=== PATIENT | male | born 1955 | race Caucasian/White ===

== ENCOUNTER 2021-12-04 08:31 | Outpatient (CLI) | payer MEDICARE, BC, SELFPAY ==
[2021-12-04 10:33] LABS: Albumin* 4.3 g/dL (3.3-5.0); Chloride* 106 mmol/L (96-114); Potassium* 4.3 mmol/L (3.6-5.1); Sodium* 138 mmol/L (135-149)
[2021-12-04 10:35] LABS: Cholesterol* 214 mg/dL (90-199); Creatinine* 0.7 mg/dL (0.5-1.5); Estimated Glomerular Filt Rate 101 ml/min
[2021-12-04 10:36] LABS: Alanine Aminotransferase* 19 U/L (4-50); Alkaline Phosphatase* 109 U/L (40-150); Aspartate Amino Transferase* 23 U/L (12-35); Bilirubin Total* 0.4 mg/dL (0.1-1.5); Blood Urea Nitrogen* 13 mg/dL (7-30); Calcium* 9.6 mg/dL (8.4-10.6); Carbon Dioxide* 27 mmol/L (20-32); Glucose* 103 mg/dL (60-115); Triglycerides* 93 mg/dL (40-149)
[2021-12-04 10:37] LABS: HDL Cholesterol* 55 mg/dL (>=40)
[2021-12-04 11:40] LABS: PSA Screen* < 0.06 ng/mL (0.10-4.00)
[2021-12-04 11:55] LABS: LDL Cholesterol Calculated 140 mg/dL (<100)
== END 2021-12-04 08:32 | disposition home or self-care (01) ==
LOC: NFLDREF 08:31
PROVIDERS: PCP Internal Medicine; Visit Provider Internal Medicine
DX: D64.9 Anemia, unspecified (principal); C61 Malignant neoplasm of prostate; Z13.6 Encounter for screening for cardiovascular disorders
CPT/HCPCS: 80053; 80061; 84153